=== PATIENT | female | born 1930 | race Caucasian/White ===

== ENCOUNTER → 2017-02-06 | Outpatient (CLI) | payer OTHER, MEDICARE ==
[2017-02-06 11:52] LABS: BASOPHILS # (AUTO) 0.03 10*3/UL; BASOPHILS % (AUTO) 0.5 % (0-1); EOSINOPHILS % (AUTO) 3.9 % (0-8); HEMOGLOBIN 11.8 g/dL (12.0-16.0); IMM GRAN % (AUTO) 0.2 % (0-5); IMM GRAN# (AUTO) 0.01 10*3/UL; LYMPHOCYTES # (AUTO) 1.14 10*3/uL; LYMPHOCYTES % (AUTO) 18.5 % (10-50); MEAN CORPUSCULAR HEMOGLOBIN 32.7 PG (27-31); MEAN CORPUSCULAR HGB CONC 32.8 g/dL (33-37); MEAN PLATELET VOLUME 8.6 FL (7.4-12.2); MONOCYTES % (AUTO) 9.7 % (5-15); NEUTROPHILS # (AUTO) 4.14 10*3/UL; NEUTROPHILS % (AUTO) 67.2 % (50-80); RDW COEFFICIENT OF VARIATION 12.5 % (11.5-14.5); RED BLOOD COUNT 3.61 10^6/uL (4.20-5.40); WHITE BLOOD COUNT 6.16 10^3/uL (4.8-10.8)
[2017-02-06 12:05] LABS: PLATELET MORPHOLOGY COMMENT NORMAL MORPHOLOGY (NORM)
[2017-02-06 12:15] LABS: HEMOGLOBIN A1C 6.18 % (4.2-6.0); MEAN BLOOD GLUCOSE (CALC) 119.794 mg/dL
[2017-02-06 12:20] LABS: ASPARTATE AMINO TRANSFERASE 27 IU/L (8-39); BILIRUBIN,TOTAL 0.7 mg/dL (0.3-1.2); BLOOD UREA NITROGEN 62 mg/dL (7-22); BUN/CREATININE RATIO 25.83 (6-20); CALCIUM 11.2 mg/dL (8.7-10.7); CHLORIDE 96 meq/L (98-112); CREATININE 2.4 mg/dL (0.50-1.20); GLUCOSE 116 mg/dL (78-110); HDL CHOLESTEROL 85 mg/dL (40-150); PHOSPHORUS 4.1 mg/dl (2.4-4.3); POTASSIUM 4.4 meq/L (3.8-5.2); SODIUM 133 meq/L (135-145); TOTAL PROTEIN 7.1 g/dL (6.1-8.0); TRIGLYCERIDES 95 mg/dL (44-200)
[2017-02-06 13:52] LABS: FREE T4 (FREE THYROXINE) 1.51 ng/dL (0.93-1.71)
== END ==
LOC: MOB LAB 10:51
DX: E11.9 Type 2 diabetes mellitus without complications (principal); I12.9 Hypertensive chronic kidney disease with stage 1 through stage 4 chronic kidney disease, or unspecified chronic kidney disease; N18.9 Chronic kidney disease, unspecified; E03.9 Hypothyroidism, unspecified; E55.9 Vitamin D deficiency, unspecified
CPT/HCPCS: 36415; 80053; 80061; 82306; 83036; 84100; 84439; 84443; 85025

== ENCOUNTER → 2017-04-04 | Outpatient (CLI) | payer OTHER, MEDICARE ==
[2017-04-04 11:45] LABS: BASOPHILS # (AUTO) 0.02 10*3/UL; BASOPHILS % (AUTO) 0.4 % (0-1); EOSINOPHILS # (AUTO) 0.22 10*3/UL; EOSINOPHILS % (AUTO) 4.1 % (0-8); HEMATOCRIT 38.1 % (37.0-47.0); HEMOGLOBIN 12.3 g/dL (12.0-16.0); LYMPHOCYTES # (AUTO) 0.96 10*3/uL; MEAN CORPUSCULAR HEMOGLOBIN 32.2 PG (27-31); MEAN CORPUSCULAR HGB CONC 32.3 g/dL (33-37); MEAN CORPUSCULAR VOLUME 99.7 FL (81-99); MEAN PLATELET VOLUME 8.6 FL (7.4-12.2); MONOCYTES # (AUTO) 0.59 10*3/UL (0.3-0.8); MONOCYTES % (AUTO) 10.9 % (5-15); NEUTROPHILS % (AUTO) 66.8 % (50-80); RED BLOOD COUNT 3.82 10^6/uL (4.20-5.40)
[2017-04-04 11:47] LABS: PLATELET MORPHOLOGY COMMENT NORMAL MORPHOLOGY (NORM); RBC MORPHOLOGY COMMENT NORMAL MORPHOLOGY (NORM); WBC MORPHOLOGY COMMENT NORMAL MORPHOLOGY (NORM)
[2017-04-04 12:06] LABS: BLOOD UREA NITROGEN 49 mg/dL (7-22); BUN/CREATININE RATIO 20.41 (6-20); CALCIUM 9.9 mg/dL (8.7-10.7); PHOSPHORUS 5.3 mg/dl (2.4-4.3)
== END ==
LOC: MOB LAB 10:57
DX: I12.9 Hypertensive chronic kidney disease with stage 1 through stage 4 chronic kidney disease, or unspecified chronic kidney disease (principal); N18.3 Chronic kidney disease, stage 3 (moderate); D63.1 Anemia in chronic kidney disease; E11.9 Type 2 diabetes mellitus without complications
CPT/HCPCS: 36415; 80048; 84100; 85025

== ENCOUNTER 2017-04-10 05:54 | Day surgery (SDC) | payer OTHER, MEDICARE ==
[2017-04-10] MEDS ORDERED: PROPOFOL 10 MG/1 ML (200 MG/20 ML) VIAL IV ONE (06:00)
[2017-04-10 09:15] VITALS: RESP 12; TEMP 97.4
[2017-04-10] MEDS ORDERED: Lactated Ringers 1,000 ML PRIMARY IV ONE (10:34)
[2017-04-10] MEDS ORDERED: LIDOCAINE W/ SODIUM BICARB 0.5 ML SYR ONE (10:34)
== END 2017-04-10 08:41 | disposition home or self-care (01) ==
LOC: SDSC 05:54
PROVIDERS: ATTEND Ophthalmology
DX: H25.12 Age-related nuclear cataract, left eye (principal)
CPT/HCPCS: 66984; J2704; J7120

== ENCOUNTER → 2017-07-03 | Outpatient (CLI) | payer OTHER, MEDICARE ==
[2017-07-03 11:57] LABS: HEMOGLOBIN A1C 7.07 % (4.2-6.0)
[2017-07-03 12:16] LABS: BLOOD UREA NITROGEN 47 mg/dL (7-22); CALCIUM 9.2 mg/dL (8.7-10.7)
== END ==
LOC: MOB LAB 10:36
DX: E11.9 Type 2 diabetes mellitus without complications (principal); E03.9 Hypothyroidism, unspecified; I12.9 Hypertensive chronic kidney disease with stage 1 through stage 4 chronic kidney disease, or unspecified chronic kidney disease; N18.3 Chronic kidney disease, stage 3 (moderate); K21.9 Gastro-esophageal reflux disease without esophagitis; G40.909 Epilepsy, unspecified, not intractable, without status epilepticus
CPT/HCPCS: 36415; 80048; 83036; 84443

== ENCOUNTER 2018-11-05 14:00 | Observation (INO) ==
[2018-11-05] MEDS ORDERED: Sodium Chloride 0.9% 1,000 ML PRIMARY IV ONE (14:32)
[2018-11-05 14:47] LABS: BASOPHILS # (AUTO) 0.01 10*3/UL; BASOPHILS % (AUTO) 0.1 % (0-1); EOSINOPHILS # (AUTO) 0.19 10*3/UL; EOSINOPHILS % (AUTO) 2.6 % (0-8); Hemoglobin [HGB] 12.7 g/dL (12.0-16.0); MEAN CORPUSCULAR HEMOGLOBIN 32.4 PG (27-31); MEAN CORPUSCULAR HGB CONC 33.4 g/dL (33-37); MEAN CORPUSCULAR VOLUME 96.9 FL (81-99); MEAN PLATELET VOLUME 9.3 FL (7.4-12.2); MONOCYTES # (AUTO) 0.54 10*3/UL (0.3-0.8); MONOCYTES % (AUTO) 7.4 % (5-15); NEUTROPHILS # (AUTO) 5.23 10*3/UL; NEUTROPHILS % (AUTO) 71.9 % (50-80); RED BLOOD COUNT 3.92 10^6/uL (4.20-5.40)
--- NOTE | 2018-11-05 14:49 | EKG ---
[address] [address] Measurements Intervals [place] Rate: 59 P: 79 [place]: 144 QRS: 23 QRSD: 145 T: 48 QT: 494 QTc: 494 Interpretive Statements SINUS BRADYCARDIA POSSIBLE LEFT ATRIAL ENLARGEMENT LEFT BUNDLE BRANCH BLOCK No previous ECG available for comparison Electronically Signed On 11-05-18 16:08:10 [facility] by Vickey Simms [email or web address]
[2018-11-05 14:57] LABS: BLOOD UREA NITROGEN 46 mg/dL (7-22); BUN/CREATININE RATIO 19.16 (6-20); SERUM ALBUMIN 4.5 g/dL (3.5-4.8)
[2018-11-05 15:06] LABS: PLATELET MORPHOLOGY COMMENT NORMAL MORPHOLOGY (NORM); RBC MORPHOLOGY COMMENT NORMAL MORPHOLOGY (NORM); WBC MORPHOLOGY COMMENT NORMAL MORPHOLOGY (NORM)
[2018-11-05 15:57] LABS: BILIRUBIN,URINE NEGATIVE (NEG); CLARITY,URINE CLEAR (CLEAR); COLOR,URINE YELLOW (Y); GLUCOSE, URINE (UA) NEGATIVE (NEG); PROTEIN,URINE >300 mg/dl (NEG); UROBILINOGEN,URINE 0.2 EU/dL (0.2)
[2018-11-05 15:58] LABS: OCCULT BLOOD,URINE TRACE (NEG)
[2018-11-05 16:15] LABS: BACTERIA,URINE RARE; SQUAMOUS EPITHELIAL CELL,UR RARE; URINE SAMPLE TYPE CATH SPECIMEN; WBC,URINE 0-2
--- NOTE | 2018-11-05 17:15 | PDOC ---
HPI - History of Present Illness Date of Service: 11/05/18 Time of Service: 18:00 Chief Complaint: Dizziness and vomiting History of Present Illness: This is an 88 years old female with medical history significant for history of hypertension, hypothyroidism and chronic renal insufficiency who was brought to the hospital for evaluation because of dizziness and the vomiting. She said she was sitting felt dizzy no spinning sensation more like lightheadedness and problem with her balance she vomited multiple times she called the medics and ion chung brought her to the hospital for evaluation. She had multiple tests that did show her kidney function to be the same. The CT of the head was negative for acute infarct or hemorrhage. She continued to feel weak and having problem with her balance and she lives alone so she was admitted. By the time I came in to see her she said she was feeling better the dizziness seemed to be improved, no nausea. She denied chest pain, palpitation, no shortness of breath. Past Medical History Medical History: 1. Diabetes on oral hyperglycemic agent. 2. Hypertension. 3. Hypothyroidism. 4. Chronic renal insufficiency stage III. 5. Macular degeneration. 6. History of carotid artery stenosis. 7. 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 Appendectomy. 2. Carpal family is. 3. secti on. 4. Cholecystectomy. 5. History of thyroid surgery Past Social History: Does not smoke, does not drink. No drugs. Lives here in [place] by herself. Has 2 sons 1 lives in [place] and the other lives in [place]. She recently lost her . Tobacco Use: Never Smoker In the Past 12 Months, Have Used or Abuse Any of the Following Substance: None Alcohol Use: None Medication / Allergies Home Medications: Home Medications Medication Instructions Recorded Confirmed Type Lancets [Freestyle Lancets] 1 ea MC PRN 07/07/11 11/05/18 History Vit C/Vit E AC/Lut/Copper/Zinc 1 cap PO BID #60 cap 12/03/15 11/05/18 History [Preservision Lutein Softgel] polyethylene glycol 3350 17 gram 17 g PO QDAY #527 ea 09/19/17 11/05/18 Rx oral powder packet irbesartan 150 mg tablet 150 mg PO QDAY #90 tab 03/06/18 11/05/18 Rx levothyroxine 125 mcg tablet 125 mcg PO QDAY tab 07/04/18 11/05/18 History aspirin 81 mg tablet,delayed 81 mg PO QDAY #90 tab 08/20/18 11/05/18 Rx release calcium carbonate 200 mg calcium 200 mg PO QDAY tab 10/17/18 11/05/18 History (500 mg) chewable tablet cholecalciferol (vitamin D3) 2,000 2,000 unit PO QDAY cap 10/17/18 11/05/18 History unit capsule multivitamin tablet 1 tab PO QDAY #30 tab 10/17/18 11/05/18 History sitaGLIPtin Tab [Januvia Tab] 100 mg PO DAILY 11/05/18 11/05/18 History Allergies/Adverse Reactions: Allergies Allergy/AdvReac Type Severity Reaction Status Date / Time clopidogrel bisulfate Allergy Intermediate RASH Verified 11/06/18 06:11 [From Plavix] lansoprazole [From Prevacid] Allergy Intermediate RASH Verified 11/06/18 06:11 omeprazole [From Prilosec] Allergy Intermediate RASH Verified 11/06/18 06:11 omeprazole magnesium Allergy Intermediate RASH Verified 11/06/18 06:11 [From Prilosec] pantoprazole sodium Allergy Intermediate RASH Verified 11/06/18 06:11 [From Protonix] propranolol HCl Allergy Intermediate RASH Verified 11/06/18 06:11 [From Inderal] atenolol [From Tenormin] Allergy Unknown NOT Verified 11/06/18 06:11 APPLICABLE clarithromycin [From Biaxin] AdvReac Intermediate NOT Verified 11/06/18 06:11 APPLICABLE pregabalin [From Lyrica] AdvReac Intermediate NOT Verified 11/06/18 06:11 APPLICABLE codeine [Codeine] AdvReac Mild NOT Verified 11/06/18 06:11 APPLICABLE quinapril HCl [From Accupril] AdvReac Mild NOT Verified 11/06/18 06:11 APPLICABLE alendronate sodium AdvReac NOT Verified 11/06/18 06:11 [From Fosamax] APPLICABLE DIURETIC AdvReac Intermediate NOT Uncoded 11/06/18 06:11 APPLICABLE Review of Systems - Review of Systems All Systems: Reviewed & No Additional Complaints Except as Stated Exam - Vitals Vital Signs: Vital Signs Temperature 97.7 F Temperature Source Temporal Artery Scan Pulse Rate [Pulse Oximeter 64 Right] Pulse Rate [Standing] 72 Pulse Rate [Sitting] 66 Pulse Rate [Lying] 64 Respiratory Rate 20 Blood Pressure [Standing] 164/85 Blood Pressure [Sitting] 182/83 Blood Pressure [Lying] 194/80 Blood Pressure [Right Arm] 180/102 Pulse Ox 94 Oxygen Delivery Method Room Air Height 5 ft 3 in Weight 105 lb - General General Appearance: No Acute Distress, Cooperative - Head Head Exam: Normal Inspection - Eye Eye Exam: POSITIVE: Normal Appearance - ENT ENT Exam: POSITIVE: Normal Exam - Neck Neck Exam: Normal Inspection - Respiratory Respiratory Exam: POSITIVE: Clear to Auscultation - Bilaterally - Cardiovascular Cardiovascular Exam: POSITIVE: RRR, Systolic Murmur - GI/Abdominal GI/Abdominal Exam: POSITIVE: Normal Bowel Sounds, Non Tender, Non Distended, Soft, No Organomegaly - Rectal Rectal Exam: POSITIVE: Deferred - External Exam: POSITIVE: Deferred - Extremities Extremities Exam: POSITIVE: Normal Inspection - Back Back Exam: POSITIVE: Normal Inspection - Neurological Neurological Exam: POSITIVE: Alert, Oriented x 3, CN II-XII Intact, No Facial Droop, Speech Intact / Clear, Moves All Extremities Equally Additional Neurological Exam Details: No nystagmus present. No coordination issues noted - Psychiatric Psychiatric Exam: POSITIVE: Normal Affect - Integumentary Integumentary Exam: POSITIVE: Normal Color Results - Labs CBC and BMP: 11/05/18 13:43 11/06/18 04:20 - EKG Data -: EKG Interpreted by Me (Left bundle branch work which is old) - Imaging Status: Report Reviewed by Me (CT head 1. There is no acute hemorrhagic or bland infarct or evidence of the cerebellar pontine angle mass. 2. The third and lateral ventricles are dilated. Punctate calcifications are present along the lateral margins of the lateral ventricles possibly related to previous infla mmatory disease. 3. Calcifications are present along the lateral margin of the left cerebellar hemisphere in proximity to the dura. These may be secondary to a meningioma or possibly due to previous infection. There is a single calcification in the left frontal lobe that also may be secondary to previous infection. 4. Moderately advanced small vessel ischemic disease given for this patient's age. Mild cerebellar and moderate cerebral atrophy.) Assessment and Plan - Patient Problems (1) Dizziness Current Visit: Yes Status: Acute Comment: Etiology unclear will watch her tonight. Will repeat her enzymes. Put her on a monitor. We'll see what the CT shows and then will decide if we need do an MRI tomorrow. Code(s): R42 - Dizziness and giddiness (2) Hypothyroidism Current Visit: No Status: Chronic Onset Date: 06/06/12 Comment: Same med Code(s): E03.9 - Hypothyroidism, unspecified (3) Benign essential hypertension Current Visit: No Status: Chronic Onset Date: 06/06/12 Comment: Blood pressure is somewhat elevated when she came will watch it. Will put on her usual medications for now. Code(s): I10 - Essential (primary) hypertension (4) Diabetes Current Visit: Yes Status: Acute Comment: Continue Januvia. Code(s): E11.9 - Type 2 diabetes mellitus without complications
[2018-11-05] MEDS ORDERED: CALCIUM CARBONATE 500 MG (TUMS) CHEWABLE TABLET PO PRN (17:47)
[2018-11-05] MEDS ORDERED: DOCUSATE 100 MG CAPSULE PO PRN (17:47)
[2018-11-05] MEDS ORDERED: LIDOCAINE W/ SODIUM BICARB 0.5 ML SYR SUBD PRN (17:47)
[2018-11-05] MEDS ORDERED: ONDANSETRON 4 MG/2 ML VIAL IVP PRN (17:47)
[2018-11-05] MEDS ORDERED: ACETAMINOPHEN 325 MG TABLET PO PRN (17:47)
[2018-11-05] MEDS ORDERED: POLYETHYLENE GLYCOL 3350 17 GM POWDER PO PRN (17:49)
--- NOTE | 2018-11-05 18:42 | DI ---
CT HEAD SCAN WITHOUT IV CONTRAST, 11/05/2018 2:32 PM : Clinical History: Vertigo. Previous Exam: None at this facility. Technique: Performed from the foramen magnum to vertex without IV contrast. Contrast Volume: None. 4th ventricle: Normal. 3rd and Lateral Ventricles: Markedly dilated but appropriate for the patient's age. There are punctat e calcifications along the lateral margins of both lateral ventricles. Cerebrum: Moderate atrophy. There are multiple punctate periventricular white matter lucencies bilate rally that extend into the watershed territory, consistent with small vessel ischemic disease. This a mount of ischemic disease is moderately advanced even for the patient's age. There is a focus of calc ification at the left frontoparietal junction measuring approximately 3 x 4 x 5 mm. Cerebellum: Mild atrophy. No cerebellopontine angle mass. Calcifications are present along the left l ateral margin of the left cerebellar hemisphere. All but one are in proximity to the dura. Brainstem: Normal. Extracerebral Mantles/Midline Shift: No extracerebral mantle or dural lesion. No midline shift. Sinuses: Normal. Skull: Intact. READIN. There is no acute hemorrhagic or bland infarct or evidence of the cerebellar pontine angle mass. 2. The third and lateral ventricles are dilated. Punctate calcifications are present along the later al margins of the lateral ventricles possibly related to previous inflammatory disease. 3. Calcifications are present along the lateral margin of the left cerebellar hemisphere in proximit y to the dura. These may be secondary to a meningioma or possibly due to previous infection. There is a single calcification in the left frontal lobe that also may be secondary to previous infection. 4. Moderately advanced small vessel ischemic disease given for this patient's age. Mild cerebellar a nd moderate cerebral atrophy.
--- NOTE | 2018-11-05 20:52 | PDOC ---
General Adult HPI - General Chief Complaint: General Medical Stated Complaint: dizzy, nauseated Date Seen by Provider: 11/05/18 Time Seen by Provider: 14:10 Source: POSITIVE: Patient, EMS Exam Limitations: POSITIVE: No limitations Nurse's Notes Reviewed & Considered: Yes EMS Report Reviewed & Considered: Verbal - History of Present Illness Initial Comment: The patient is an 88-year-old female who is brought to the emergency room by ambulance. Patient states around 10:00 this morning, approximately 4 hours [employer] she developed "weakness and dizziness". Patient has a history of diabetes mellitus and she thought that her blood sugar might be low so she took 3 glucose tablets and some orange juice. Shortly thereafter she vomited. She states she's had 3 or 4 episodes of vomiting. She called the ambulance and the ambulance brought her here. Patient states that she sometimes has the sensation of" spinning". Patient states that she feels "very weak ". She normally uses a walker and her gait has become unsteady. She states she has a history of "a prolapsed heart valve". Patient states that upon presentation to the emergency room she is beginning to feel better. She denies any associated head, chest or abdominal pain. No localized sensory or motor deficits. No hematemesis. No diarrhea. Patient is a frail elderly female who lives alone. She states she has some grandchildren in [place]. She normally uses a walker to get around. Have you received a tetanus shot in the past 10 years?: No Body Location Affected: REPORTS: Other (As above) Timing: REPORTS: Abrupt, Constant, Improved Duration: 4-6 hours Severity: Moderate Quality: REPORTS: Other (Patient denies any pain anywhere) Context: REPORTS: Sitting (Worse when trying to sit or stand), Standing (Worse when trying to sit or stand), Near Fall Modifying Factors: improves with: Vomiting (As above), Movement Similar Symptoms Previously: No Recent Care Received: REPORTS: Denies Any Prior Injuries Related to Current Complaint?: No - Patient Home Medications Home Medications: Home Medications Lancets [Freestyle Lancets] 1 ea PRN 07/07/11 Vit C/Vit E AC/Lut/Copper/Zinc [Preservision Lutein Softgel] 1 cap PO BID #60 cap 12/03/15 polyethylene glycol 3350 17 gram oral powder packet 17 g PO QDAY #527 ea 09/19/17 irbesartan 150 mg tablet 150 mg PO QDAY #90 tab 03/06/18 levothyroxine 125 mcg tablet 125 mcg PO QDAY tab 07/04/18 aspirin 81 mg tablet,delayed release 81 mg PO QDAY #90 tab 08/20/18 calcium carbonate 200 mg calcium (500 mg) chewable tablet 200 mg PO QDAY tab 10/17/18 cholecalciferol (vitamin D3) 2,000 unit capsule 2,000 unit PO QDAY cap 10/17/18 multivitamin tablet 1 tab PO QDAY #30 tab 10/17/18 sitaGLIPtin Tab [Januvia Tab] 100 mg PO DAILY 11/05/18 - Patient Allergies Allergies/Adverse Reactions: Allergies Allergy/AdvReac Type Severity Reaction Status Date / Time clopidogrel bisulfate Allergy Intermediate RASH Verified 11/05/18 14:49 [From Plavix] lansoprazole [From Prevacid] Allergy Intermediate RASH Verified 11/05/18 14:49 omeprazole [From Prilosec] Allergy Intermediate RASH Verified 11/05/18 14:49 omeprazole magnesium Allergy Intermediate RASH Verified 11/05/18 14:49 [From Prilosec] pantoprazole sodium Allergy Intermediate RASH Verified 11/05/18 14:49 [From Protonix] propranolol HCl Allergy Intermediate RASH Verified 11/05/18 14:49 [From Inderal] atenolol [From Tenormin] Allergy Unknown NOT Verified 11/05/18 14:49 APPLICABLE clarithromycin [From Biaxin] AdvReac Intermediate NOT Verified 11/05/18 14:49 APPLICABLE pregabalin [From Lyrica] AdvReac Intermediate NOT Verified 11/05/18 14:49 APPLICABLE codeine [Codeine] AdvReac Mild NOT Verified 11/05/18 14:49 APPLICABLE quinapril HCl [From Accupril] AdvReac Mild NOT Verified 11/05/18 14:49 APPLICABLE alendronate sodium AdvReac NOT Verified 11/05/18 14:49 [From Fosamax] APPLICABLE DIURETIC AdvReac Intermediate NOT Uncoded 11/05/18 14:49 APPLICABLE Past Medical History - heen HEENT History: Macular Degeneration, Cataracts Cardiovascular History: Hypertension, CAD, DVTs Respiratory History: Denies History Gastrointestinal History: GERD Genitourinary History: Renal Disease, Incontinence Endocrine History: Type 2 Diabetes (oral) Musculoskeletal History: Arthritis, Joint Pain Neurological History: TIA, Seizures Additional Neurological History: WAS ON SEIZURE MEDS FOR 2 YRS THEN THEY STOPPED AND HAVENT TAKEN MEDS SINCE. Blood Disorders: Denies History Psychiatric History: Denies History History of Sexually Transmitted Diseases: No Female Reproductive History: Hysterectomy Obstetrical History: Delivery Cancer History: Denies History In Past Year Been Physically Harmed or Verbally Threatened: No History of MDRO: No History of Other Communicable Diseases: No Tobacco Use: Never Smoker Alcohol Use: None In the Past 12 Months, Have Used or Abuse Any Substance: None Previous Surgical History: Yes Type / Date of Surgery: RIGHT CTR/ PARTIAL THYROIDECTOMY/ BILAT BREAST BX/ AIME/ APPY/ HYST/ BLADDER SUSPENSION/ RIGHT CATARACT FEBRUARY 05, 2017 Anesthesia Reactions: No Malignant Hyperthermia: No Significant Family History: Diabetes, Heart disease, Hypertension, Renal disease, Vascular disease Past Medical History Reviewed: Reviewed - No Changes ROS - Limitations ROS Limitations: No Limitations Constitution: REPORTS: Weakness Cardiovascular: REPORTS: Denies Cardiac Symptoms Respiratory: REPORTS: Denies Resp Symptoms Neurological: REPORTS: Denies Neuro Symptoms Gastrointestinal: REPORTS: Vomitting (3 or 4 today) Endocrine: REPORTS: Fatigue Musculoskeletal: REPORTS: Denies MS Symptoms Genitourinary: REPORTS: Denies Symptoms Eyes: REPORTS: Denies Symptoms ENT: REPORTS: Denies Symptoms Skin: REPORTS: Denies Skin Symptoms Lympathic: REPORTS: Denies Lympathic Symptoms Immunologic: POSITIVE: Denies Symptoms Psychiatric: POSITIVE: Denies Psych Symptoms General Adult Exam - General Appearance General Appearance: POSITIVE: Alert, Cooperative, No Acute Distress, No Evidence of Trauma - HEENT HEENT: POSITIVE: Head Inspection Nml, Eyes Inspection Nml, Ears Inspection Nml, Nose Inspection Nml, Oral/Dental Inspect. Nml, Pharynx Inspect. Nml, PERRL, EOMI, Other (No abnormal nystagmus. Negative [place]-Hallpike test) - Pupils Pupil Size: 4 mm: Bilateral (PERRLA) - Neck Neck: POSITIVE: Normal Inspection, Thyroid Normal - Respiratory Respiratory: POSITIVE: No Respiratory Distress, Breath Sounds Normal, Chest Non- Tender - Cardiovascular Cardiovascular: POSITIVE: Regular Rate & Rhythm, No Murmur, No Gallop, PMI Normal Peripheral Pulses: Radial (R): 2+, Radial (L): 2+ - Abdomen Abdomen: Soft: (All Quadrants), Normal Bowel Sounds: (All Quadrants), Denies T enderness: (All Quadrants), No Splenomegaly: (All Quadrants), No Hepatomegaly: (All Quadrants), No Guarding: (All Quadrants), No Rebound: (All Quadrants), No Palpable Pulse: (All Quadrants), No Palpabale Mass: (All Quadrants), No Distention: (All Quadrants), No Rigidity: (All Quadrants) - Back Back: POSITIVE: Normal Inspection - Skin Skin: POSITIVE: Normal Color, Warm, Dry, No Rash - Extremities Extremity: Non-Tender: (All Extremities), Normal ROM: (All Extremities), Normal Inspection: (All Extremities) - Neurological / Psychological Neurological: POSITIVE: Affect Apporpriate, 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 Lab Results Reviewed by Me: Yes Lab Results:: Laboratory Results 11/05/18 11/05/18 11/05/18 13:43 13:43 13:43 WBC 7.28 RBC 3.92 L Hgb 12.7 Hct 38.0 MCV 96.9 MCH 32.4 H MCHC 33.4 RDW Std Deviation 41.9 RDW Coeff of Alberto 12.2 Plt Count 208 MPV 9.3 Immature Gran % (Auto) 0.1 Neut % (Auto) 71.9 Lymph % (Auto) 17.9 [place] % (Auto) 7.4 Eos % (Auto) 2.6 Baso % (Auto) 0.1 Immature Gran # (Auto) 0.01 Neut # (Auto) 5.23 Lymph # (Auto) 1.30 [place] # (Auto) 0.54 Eos # (Auto) 0.19 Baso # (Auto) 0.01 WBC Morphology Comment Normal morphology Plt Morphology Comment Normal morphology RBC Morph Comment Normal morphology Sodium 133 L Potassium 4.2 Chloride 98 Carbon Dioxide 23 Anion Gap 12 BUN 46 H Creatinine 2.4 H Estimated GFR Artist And Repertoire Manager BUN/Creatinine Ratio 19.16 Glucose 143 H Calculated Osmolality 289.0 Calcium 9.5 Magnesium 2.0 Total Bilirubin 0.9 AST 26 ALT 32 Alkaline Phosphatase 84 Total Creatine Kinase 169 H CK-MB (CK-2) 3.54 Troponin I < 0.012 Total Protein 7.2 Albumin 4.5 Globulin 2.8 Albumin/Globulin Ratio 1.60 Ur Collection Type Urine Color Urine Clarity Urine pH Ur Specific [place] Urine Protein Urine Glucose (UA) Urine Ketones Urine Occult Blood Urine Nitrate Urine Bilirubin Urine Urobilinogen Ur Leukocyte Esterase Urine RBC Urine WBC Ur Squamous Epith Cells Ur Renal Epithelial Cell Urine Crystals Urine Bacteria Urine Casts Urine Mucus Urine Trichomonas Urine Yeast Ur Culture Indicated? 11/05/18 15:35 WBC RBC Hgb Hct MCV MCH MCHC RDW Std Deviation RDW Coeff of Alberto Plt Count MPV Immature Gran % (Auto) Neut % (Auto) Lymph % (Auto) [place] % (Auto) Eos % (Auto) Baso % (Auto) Immature Gran # (Auto) Neut # (Auto) Lymph # (Auto) [place] # (Auto) Eos # (Auto) Baso # (Auto) WBC Morphology Comment Plt Morphology Comment RBC Morph Comment Sodium Potassium Chloride Carbon Dioxide Anion Gap BUN Creatinine Estimated GFR BUN/Creatinine Ratio Glucose Calculated Osmolality Calcium Magnesium Total Bilirubin AST ALT Alkaline Phosphatase Total Creatine Kinase CK-MB (CK-2) Troponin I Total Protein Albumin Globulin Albumin/Globulin Ratio Ur Collection Type Cath specimen Urine Color Yellow Urine Clarity Clear Urine pH 7.0 Ur Specific [place] 1.015 Urine Protein >300 A Urine Glucose (UA) Negative Urine Ketones Negative Urine Occult Blood Trace H Urine Nitrate Negative Urine Bilirubin Negative Urine Urobilinogen 0.2 Ur Leukocyte Esterase Negative Urine RBC 2-4 Urine WBC 0-2 Ur Squamous Epith Cells Rare Ur Renal Epithelial Cell None Urine Crystals None Urine Bacteria Rare Urine Casts None Urine Mucus Moderate Urine Trichomonas None Urine Yeast None Ur Culture Indicated? Culture not set CBC and BMP: 11/05/18 13:43 11/05/18 13:43 EKG Interpreted/Reviewed By Me:: Yes (left bundle-branch block; sinus rhythm at 59/m) EKG Interpretation:: POSITIVE: Normal Sinus Rhythm, Abnormal EKG. NEGATIVE: Normal Rate (59/m, sinus), Normal Intervals (Left bundle-branch block), Normal [place] (Left bundle-branch block), Normal QRS (Left bundle-branch block), Normal ST/T (Left bundle-branch block) - Patient's Progress Pain Medication Addressed: POSITIVE: Not Applicable School/Work Release Addressed: POSITIVE: Not Applicable Re-Examine Time: 16:35 Re-Examine Comment: Options for further evaluation and treatment discussed with patient. Patient advised that at this time I'm not completely sure what the source of her symptoms are. Patient lives alone and is very frail and has an inadequate social support network. We decided to admit the patient for further observation and evaluation and treatment as necessary. Status: POSITIVE: Unchanged, Re-Examined Antibiotics Given: No - Consult Consult (If Yes, Name of Consulting MD & Time Called): Yes (Dr. Liu, hospitalist, [id number]) Consulting MD will see pt:: POSITIVE: [facility] Admit Counseled: POSITIVE: Patient, RE: Lab Results, RE: Radiology Results, RE: DX, RE: Need for F/U Patient Care Time - Estimated PCT Patient Care Time (In Minutes): 60 Vital Signs - Recent Vital Signs Vital Signs: Vital Signs (Last 8 hours) Temp Pulse Pulse Pulse Pulse Pulse Pulse 11/05/18 20:01 98.0 F 71 11/05/18 18:30 60 11/05/18 18:08 97.8 F 66 11/05/18 17:00 97.7 F 72 11/05/18 16:25 64 66 72 11/05/18 14:00 97.7 F 64 Resp BP BP BP BP BP Pulse Ox 11/05/18 20:01 18 146/65 92 11/05/18 18:30 14 11/05/18 18:08 18 182/69 95 11/05/18 17:00 20 164/85 94 11/05/18 16:25 194/80 182/83 164/85 11/05/18 14:00 20 180/102 94 - VS Reviewed Vital Signs Reviewed: Yes Discharge Clinical Impression: Dizziness, Weakness, Inadequate social support Discharge Disposition: Admit to Inpatient Condition: Stable Date Decision to Admit to Inpatient: 11/05/18 Time Decision to Admit to Inpatient: 16:35
[2018-11-06 05:08] LABS: BLOOD UREA NITROGEN 44 mg/dL (7-22); BUN/CREATININE RATIO 18.33 (6-20); SERUM ALBUMIN 3.4 g/dL (3.5-4.8)
[2018-11-06] MEDS ORDERED: LEVOTHYROXINE 125 MCG TABLET PO SCH (07:00)
[2018-11-06] MEDS ORDERED: sitaGLIPtin Tab 100 MG TAB PO SCH (09:00)
[2018-11-06] MEDS ORDERED: ASPIRIN EC 81 MG TABLET PO SCH (09:00)
[2018-11-06] MEDS ORDERED: Multivitamin Tab 1 TAB PO SCH (09:00)
--- NOTE | 2018-11-06 10:59 | DI ---
MRI BRAIN SCAN WITHOUT IV CONTRAST, 11/06/2018 9:00 AM: Clinical History: Vomiting. Dizziness. Previous Exam: 05/21/2010. Comparison is also made with the most recent CT head scan from 11/05/2018, as well as a previous study from 10/05/2008. Sequences: Sagittal T1; Axial ZI T2 and FLAIR. Axial diffusion weighted images with ADC mapping. 4th Ventricle: The fourth ventricle is of normal size, shape, position and contour. 3rd Ventricle: Markedly dilated. Lateral Ventricles: Markedly dilated. In retrospect, the very small punctate calcifications are visib le along the lateral huntley of the lateral ventricles. These have not changed since the CT scans from 2007. Brain Parenchyma: There is no acute hemorrhagic or bland infarct. There are multiple punctate periven tricular white matter hyperintensities bilaterally that extend into the watershed territory, consiste nt with small vessel ischemic disease. This amount of ischemic disease is markedly increased for the patient's age, and these changes have progressed since the last MRI brain study. Ischemic changes are also present in the left cerebral peduncle and the mid brain and these have not changed. The focus o f calcification in the left frontoparietal junction is noted and in retrospect, has not changed since the prior MRI and CT head scans. Mass: No cerebellar pontine angle mass or other intracranial mass is identified. Atrophy: Moderate cerebral and mild cerebellar atrophy. Diffusion Weighted Imaging: Normal diffusion weighted imaging with ADC mapping. Extracerebral Mantels/Midline Shift: No extracerebral mantels or midline shift. Sinuses: Normal paranasal sinuses. Readin. No acute hemorrhagic or bland infarct is identified. There is no cerebellar pontine angle mass. 2. Markedly severe small vessel ischemic change and this has progressed since the previous MRI brain scan from 2009. Ischemic changes are also noted in the left cerebral peduncle and midbrain, and thes e are unchanged. 3. Punctate calcifications in the lateral huntley of the lateral ventricles and the calcification in t he left frontoparietal region were present on the previous CT scan from 2007 and remained stable. The exact etiology of these calcifications in the lateral ventricles is uncertain. They may be secondary to previous infection.
--- NOTE | 2018-11-06 11:34 | PT.PROG ---
Progress Note Progress Note: Inpatient Initial Evaluation Name: Jaja Morales Date: 11/06/18 Referring Physician: Nora Liu Date of Surgery/Admission: 11/06/18 Diagnosis: Generalized Weakness Thank you for your referral of PT. He was seen on 11/06/18 for the above diagnosis. Subjective: The patient is a 88-year-old female admitted to inpatient care for generalized weakness. She states she doesn't have any pain at this time. She becomes dizzy upon standing, but otherwise isn't feeling dizzy at this time. She feels she is stronger today, and she is feeling much better. Patient lives alone in a one level house, and has three 3" steps to her front door with a hand rail. Past Medical History: Past medical history can be found in the patient's chart. Objective Findings: Patient ambulated 150 ft around the nurses station. She then completed LE and UE strengthening exercises in a seated position. Assessment: Problem List 1. Weakness 2. Difficulty walking 3. Dizziness Short-term Goals: 1. Patient will be able to ambulate 200 ft in order to walk safely and independently at home prior to discharge. 2. Patient will have improved strength prior to discharge. Long-term Goals: 1. Patient will be seen by outpatient physical therapy. Treatment Plan: Patient will be seen twice a day during the week and once over the weekend until discharge. Initial Treatment: See objective. Respectfully submitted, Abida Hatfield, SPT [facility] [employer], [facility]
--- NOTE | 2018-11-06 14:13 | DCSUMMARY ---
Hospitalization Summary Admit Date: 11/05/2018 Discharge Date: 11/06/18 Hospital Course: Discharge diagnoses 1. Episode of nausea and dizziness resolved 2. Hypertension 3. Hypothyroidism 4. Chronic kidney disease stage III 5. History of macular degeneration 6. History of carotid artery stenosis 7. History of previous DVT was on Coumadin at one point in time 8. Small vessel disease Hospital course This is an 88 years old female medical history significant for history of hypertension, hypothyroidism and chronic renal disease stage III who was brought to the hospital for evaluation because of dizziness and vomiting. She said she was sitting and then started to feel dizzy there was no spinning sensation though more like lightheadedness and problem with her balance. She did say she vomited multiple times called the medics who brought her to the hospital for evaluation. She had multiple tests that show her kidney function to be the same. The CT of the head was negative for acute infarct or hemorrhage. She continued to feel weak so she was admitted to the hospital. By the time I saw her she started to feel better. We kept her overnight. We repeated her cardiac enzymes were negative. We did an MRI of the brain which showed small vessel disease no acute infarct. There is calcification of the lateral ventricle may be from previous infection. She was assessed by physical therapy and they thought that she did well so we thought could be discharged home. She was better the next day and denied symptoms. She'll be discharged on same medication follow-up with her primary. The exact etiology of her symptoms is unclear. There was no evidence of nystagmus or incoordination when she came in. Laboratory Results 11/05/18 11/05/18 11/05/18 13:43 13:43 13:43 WBC 7.28 RBC 3.92 L Hgb 12.7 Hct 38.0 MCV 96.9 MCH 32.4 H MCHC 33.4 RDW Std Deviation 41.9 RDW Coeff of Alberto 12.2 Plt Count 208 MPV 9.3 Immature Gran % (Auto) 0.1 Neut % (Auto) 71.9 Lymph % (Auto) 17.9 [place] % (Auto) 7.4 Eos % (Auto) 2.6 Baso % (Auto) 0.1 Immature Gran # (Auto) 0.01 Neut # (Auto) 5.23 Lymph # (Auto) 1.30 [place] # (Auto) 0.54 Eos # (Auto) 0.19 Baso # (Auto) 0.01 WBC Morphology Comment Normal morphology Plt Morphology Comment Normal morphology RBC Morph Comment Normal morphology Sodium 133 L Potassium 4.2 Chloride 98 Carbon Dioxide 23 Anion Gap 12 BUN 46 H Creatinine 2.4 H Estimated GFR [facility] BUN/Creatinine Ratio 19.16 Glucose 143 H Calculated Osmolality 289.0 Calcium 9.5 Magnesium 2.0 Total Bilirubin 0.9 AST 26 ALT 32 Alkaline Phosphatase 84 Total Creatine Kinase 169 H CK-MB (CK-2) 3.54 Troponin I < 0.012 Total Protein 7.2 Albumin 4.5 Globulin 2.8 Albumin/Globulin Ratio 1.60 Ur Collection Type Urine Color Urine Clarity Urine pH Ur Specific [place] Urine Protein Urine Glucose (UA) Urine Ketones Urine Occult Blood Urine Nitrate Urine Bilirubin Urine Urobilinogen Ur Leukocyte Esterase Urine RBC Urine WBC Ur Squamous Epith Cells Ur Renal Epithelial Cell Urine Crystals Urine Bacteria Urine Casts Urine Mucus Urine Trichomonas Urine Yeast Ur Culture Indicated? 11/05/18 11/06/18 11/06/18 15:35 04:20 04:20 WBC RBC Hgb Hct MCV MCH MCHC RDW Std Deviation RDW Coeff of Alberto Plt Count MPV Immature Gran % (Auto) Neut % (Auto) Lymph % (Auto) [place] % (Auto) Eos % (Auto) Baso % (Auto) Immature Gran # (Auto) Neut # (Auto) Lymph # (Auto) [place] # (Auto) Eos # (Auto) Baso # (Auto) WBC Morphology Comment Plt Morphology Comment RBC Morph Comment Sodium 136 Potassium 4.2 Chloride 104 Carbon Dioxide 26 Anion Gap 6 BUN 44 H Creatinine 2.4 H Estimated GFR Risk Management Internship BUN/Creatinine Ratio 18.33 Glucose 105 Calculated Osmolality 292.0 Calcium 9.2 Magnesium Total Bilirubin 0.7 AST 20 ALT 33 Alkaline Phosphatase 63 Total Creatine Kinase CK-MB (CK-2) Troponin I 0.031 Total Protein 5.7 L Albumin 3.4 L Globulin 2.3 L Albumin/Globulin Ratio 1.40 Ur Collection Type Cath specimen Urine Color Yellow Urine Clarity Clear Urine pH 7.0 Ur Specific [place] 1.015 Urine Protein >300 A Urine Glucose (UA) Negative Urine Ketones Negative Urine Occult Blood Trace H Urine Nitrate Negative Urine Bilirubin Negative Urine Urobilinogen 0.2 Ur Leukocyte Esterase Negative Urine RBC 2-4 Urine WBC 0-2 Ur Squamous Epith Cells Rare Ur Renal Epithelial Cell None Urine Crystals None Urine Bacteria Rare Urine Casts None Urine Mucus Moderate Urine Trichomonas None Urine Yeast None Ur Culture Indicated? Culture not set Discharge instruction Diet regular Activity as tolerated Medications Current Medication(s) Medication Instructions Recorded Confirmed Type Lancets [Freestyle Lancets] 1 ea MC PRN 07/07/11 11/05/18 History Vit C/Vit E AC/Lut/Copper/Zinc 1 cap PO BID #60 cap 12/03/15 11/05/18 History [Preservision Lutein Softgel] polyethylene glycol 3350 17 gram 17 g PO QDAY #527 ea 09/19/17 11/05/18 Rx oral powder packet irbesartan 150 mg tablet 150 mg PO QDAY #90 tab 03/06/18 11/05/18 Rx levothyroxine 125 mcg tablet 125 mcg PO QDAY tab 07/04/18 11/05/18 History aspirin 81 mg tablet,delayed 81 mg PO QDAY #90 tab 08/20/18 11/05/18 Rx release calcium carbonate 200 mg calcium 200 mg PO QDAY tab 10/17/18 11/05/18 History (500 mg) chewable tablet cholecalciferol (vitamin D3) 2,000 2,000 unit PO QDAY cap 10/17/18 11/05/18 History unit capsule multivitamin tablet 1 tab PO QDAY #30 tab 10/17/18 11/05/18 History sitaGLIPtin Tab [Januvia Tab] 100 mg PO DAILY 11/05/18 11/05/18 History Follow-up with PCP in 1-2 weeks Condition at discharge was stable for discharge Exam - Vitals Vital Signs: Vital Signs Temperature 97.6 F Temperature Source Temporal Artery Scan Pulse Rate [Apical] 54 Pulse Rate [Pulse Oximeter 58 Right] Pulse Rate [Standing] 72 Pulse Rate [Sitting] 66 Pulse Rate [Lying] 64 Pulse Rate 53 Respiratory Rate 12 Blood Pressure [Standing] 164/85 Blood Pressure [Sitting] 182/83 Blood Pressure [Lying] 194/80 Blood Pressure [Left Arm] 181/84 Blood Pressure [Right Arm] 137/56 Blood Pressure 164/85 Pulse Ox 97 Oxygen Delivery Method Room Air Height 5 ft 3 in Weight 104 lb - General General Appearance: No Acute Distress, Cooperative - Head Head Exam: Normal Inspection - Eye Eye Exam: POSITIVE: Normal Appearance - ENT ENT Exam: POSITIVE: Normal Exam - Neck Neck Exam: Normal Inspection - Respiratory Respiratory Exam: POSITIVE: Clear to Auscultation - Bilaterally - Cardiovascular Cardiovascular Exam: POSITIVE: RRR - GI/Abdominal GI/Abdominal Exam: POSITIVE: Normal Bowel Sounds, Non Tender, Non Distended, Soft, No Organomegaly - Rectal Rectal Exam: POSITIVE: Deferred - External Exam: POSITIVE: Deferred - Extremities Extremities Exam: POSITIVE: Normal Inspection - Back Back Exam: POSITIVE: Normal Inspection - Neurological Neurological Exam: POSITIVE: Alert, Oriented x 3, CN II-XII Intact, No Facial Droop, Speech Intact / Clear - Psychiatric Psychiatric Exam: POSITIVE: Normal Affect - Integumentary Integumentary Exam: POSITIVE: Normal Color Patient Problems - Patient Problem List (1) Dizziness Status: Acute Code(s): R42 - Dizziness and giddiness Category: Medical (2) Hypothyroidism Status: Chronic Onset Date: 06/06/12 Code(s): E03.9 - Hypothyroidism, unspecified Category: Medical (3) Benign essential hypertension Status: Chronic Onset Date: 06/06/12 Code(s): I10 - Essential (primary) hypertension Category: Medical (4) Diabetes Status: Acute Code(s): E11.9 - Type 2 diabetes mellitus without complications Category: Medical
--- NOTE | 2018-11-06 14:58 | OTI REPORT ---
Thank you for the referral of Jaja Morales. She was seen on 11/06/18 for an occupational therapy inpatient evaluation secondary to weakness. SUBJECTIVE: The patient is an 88-year-old female who is being seen today to assess whether or not she can care for herself and live on her own. The patient came into the emergency room yesterday with dizziness, nausea, and vomiting. Prior to admission, the patient states she typically does pretty well for herself. She was able to go into detail about her medication management and her diet for her Diabetes. The patient talked about how she manages herself and how she goes about doing this. The patient reports she does have some balance issues at times, especially when standing to pull up her pants, but she has not fallen and she states she usually can accommodate by hanging onto a counter. The patient does have her bathroom set up with a bar that goes from the ceiling to the floor with three handles that she can grab onto. The patient has a shower chair that she sits on and a long handled shower hose. The patient states she does not have difficulty getting on and off her toilet. The patient lives in a one level home and does not have throw rugs. She uses a three wheeled walker with a seat. The patient reports that she is visually impaired and has macular degeneration that is gradually getting worse every year. The patient's this past year and she states that has been difficult. She reports some of her appliances in her home have stopped working, such as her toaster and forest worker. The patient does have "[employer]" come one time a month to help clean her house. PAST MEDICAL HISTORY: Past medical history can be found in the patient's medical record. OBJECTIVE FINDINGS: Bed mobility: The patient was able to come from supine to sit independently. Activities of daily living: While sitting edge of bed, the patient was asked to get up and get clothes off of the countertop so that the therapist could assess her balance and reaching abilities. The patient was able to grab onto a stable surface and grab her clothes. Since this walker does not have a seat like the one she normally sits on, the therapist did grab the clothes for the patient. The patient was able to sit edge of bed and don lower extremity clothing independently after set up. When pulling up pants, the patient slightly lost her balance x2 but was able to recover by hanging onto the walker and the bed. The patient reports that sometimes she does this at home but she has never fallen. The patient has very good flexibility in her lower extremities and was able to don socks and shoes. The patient was able to don upper extremity clothing independently. Range of motion: The patient has active range of motion of the upper extremities that is within functional limits. Strength: Upper extremity strength was 4/5 throughout bilateral upper extremities. ASSESSMENT: The patient demonstrates ability to care for self at home. The therapist did discuss the patient getting meals on wheels; however, the patient reports that they do not accommodate to a diabetic diet. The therapist did talk to Ashley More about educating the patient about [employer] which can accommodate a diabetic diet and can be delivered to the patient's home. The patient reports that she gets tired of cooking for herself and this may be a good option that would accommodate to her specific needs. The patient is going to look into getting a little bit more help from "[employer]". The patient's Life[employer] did not work when she called it. It is highly recommended that the patient use the [facility] of using the LifeLine. This would assist the patient in case anything where to happen in having an adequate LifeLine at home. Short-Term Goals: To be met by discharge from inpatient: Patient will be able to dress self independently without balance difficulties. Patient will be able to complete all functional stand activities without loss of balance. Patient will improve strength to 4+/5. Long-Term Goals: To be met following discharge from inpatient: Patient will be discharged home, demonstrating safety and independence with all ADLs and functional abilities. TREATMENT PLAN: Patient will more than likely be discharged today. The therapist did talk to Dr. Liu and Ashley More about recommendations for [employer] as well as a little more help at home from "[employer]". Overall the patient is feeling back to her typical self. She does not complain of dizziness today and demonstrated abilities to care for herself at home. If the patient continues to stay at the hospital, we will continue to see her. INITIAL TREATMENT: Treatment today consisted of the initial evaluation followed by the patient dressing self. The patient required contact guard assist to pull pants from knee to waist. The patient also completed functional stand activities at sink with stand by assist. JANA
--- NOTE | 2018-11-06 15:59 | PT.PROG ---
Progress Note Progress Note: S. Patient stated that she is feeling much better today compared to yesterday. O. Patient ambulated 175 feet to the therapy gym where she performed balance activities 3x2 minutes, sit to stands x 10 and #2 box step ups x 10 then ambulated 175 feet back to his room where she was left in her chair with alarm and call light. A. Patient tolerated therapy well, she was able to ambulate with SBG assist. Patient has met all goals at this time. P. Patient is cleared from therapy at this time.
== END 2018-11-06 15:03 | disposition home or self-care (01) ==
LOC: MED/SURG 14:00 → ER 14:00
PROVIDERS: ADMIT Internal Medicine; ATTEND Internal Medicine

== ENCOUNTER 2019-03-22 14:03 | Inpatient (IN) ==
--- NOTE | 2019-03-22 14:08 | PDOC ---
Dizziness HPI - General Chief Complaint: Neurological Complaints Stated Complaint: dizziness since noon Date Seen by Provider: 03/22/19 Time Seen by Provider: 14:08 Source: POSITIVE: Patient, EMS Exam Limitations: POSITIVE: No limitations Nurse's Notes Reviewed & Considered: Yes - History of Present Illness Initial Comments: This is a well-developed, well-nourished, thin-appearing 89-year-old female who is complaining of dizziness. Patient states she's been having episodes of dizziness recently and went to sit down in her easy chair. She noticed easy chair and fell between the chair and the couch and it required her some effort to regain an erect posture and at that time she was dizzy so she sat down in the chair and continued to be dizzy. She then called for EMS who have brought her here for evaluation. She denies any headache, no sore throat, no runny nose, no chest pain or shortness of breath, no nausea vomiting or diarrhea, no hematuria dysuria, no rashes, no myalgias or arthralgias. Body Location Affected: REPORTS: Head Timing: REPORTS: Abrupt Duration: 1 hour Context: REPORTS: Exertion, Fall Quality: REPORTS: Other (Dizziness) Associated Symptoms: DENIES: Hearing Loss, Ringing in Ear(s), Roaring in Ear(s), Ear Pain, Nausea, Vomiting, Movement Sense - Distinct, Sense of Spinning, Sense of Falling, Movement Sense - Vague, Headache, Weakness, Numbness, Diaphoresis, Light Headedness, Fainting, Near Fainting, While Sitting, While Standing, While Supine, With Position Change, Sense of Confusion, Other Current Ability to Walk/Stand: REPORTS: Difficulty Walking (Required assistance) Usual Ability to Walk/Stand: REPORTS: Walker Use Aggrevated by: REPORTS: Position Changes Similar Symptoms Previously: Yes Recently seen/treated/hospitalized: No Any Prior Injuries Related to Current Complaint?: No - Patient Home Medications Home Medications: Home Medications RX: Lancets [Freestyle Lancets] 1 ea PRN 07/07/11 RX: Vit C/Vit E AC/Lut/Copper/Zinc [Preservision Lutein Softgel] 1 cap PO BID #60 cap 12/03/15 polyethylene glycol 3350 17 gram oral powder packet 17 g PO QDAY #527 ea 09/19/17 cholecalciferol (vitamin D3) 2,000 unit capsule 2,000 unit PO QDAY cap 10/17/18 multivitamin tablet 1 tab PO QDAY #30 tab 10/17/18 levothyroxine 125 mcg tablet 125 mcg PO QDAY #90 tab 01/30/19 glipizide ER 5 mg tablet, extended release 24 hr 5 mg PO QDAY #30 tab 02/18/19 irbesartan 150 mg tablet 150 mg PO QDAY #90 tab 02/28/19 - Patient Allergies Allergies/Adverse Reactions: Allergies Allergy/AdvReac Type Severity Reaction Status Date / Time clopidogrel bisulfate Allergy Intermediate RASH Verified 03/22/19 16:29 [From Plavix] lansoprazole [From Prevacid] Allergy Intermediate RASH Verified 03/22/19 16:29 omeprazole [From Prilosec] Allergy Intermediate RASH Verified 03/22/19 16:29 omeprazole magnesium Allergy Intermediate RASH Verified 03/22/19 16:29 [From Prilosec] pantoprazole sodium Allergy Intermediate RASH Verified 03/22/19 16:29 [From Protonix] propranolol HCl Allergy Intermediate RASH Verified 03/22/19 16:29 [From Inderal] atenolol [From Tenormin] Allergy Unknown NOT Verified 03/22/19 16:29 APPLICABLE clarithromycin [From Biaxin] AdvReac Intermediate NOT Verified 03/22/19 16:29 APPLICABLE pregabalin [From Lyrica] AdvReac Intermediate NOT Verified 03/22/19 16:29 APPLICABLE codeine [Codeine] AdvReac Mild NOT Verified 03/22/19 16:29 APPLICABLE quinapril HCl [From Accupril] AdvReac Mild NOT Verified 03/22/19 16:29 APPLICABLE alendronate sodium AdvReac NOT Verified 03/22/19 16:29 [From Fosamax] APPLICABLE DIURETIC AdvReac Intermediate NOT Uncoded 03/22/19 16:29 APPLICABLE Past Medical History - heen HEENT History: Macular Degeneration, Cataracts Cardiovascular History: Hypertension, CAD, DVTs Respiratory History: Denies History Gastrointestinal History: GERD Genitourinary History: Renal Disease, Incontinence Endocrine History: Type 2 Diabetes (oral) Musculoskeletal History: Arthritis, Joint Pain Neurological History: TIA, Seizures Additional Neurological History: WAS ON SEIZURE MEDS FOR 2 YRS THEN THEY STOPPED AND HAVENT TAKEN MEDS SINCE. Blood Disorders: Denies History Psychiatric History: Denies History History of Sexually Transmitted Diseases: No Cancer History: Denies History History of MDRO: No History of Other Communicable Diseases: No Alcohol Use: None In the Past 12 Months, Have Used or Abuse Any Substance: None Previous Surgical History: Yes Type / Date of Surgery: RIGHT CTR/ PARTIAL THYROIDECTOMY/ BILAT BREAST BX/ AIME/ APPY/ HYST/ BLADDER SUSPENSION/ RIGHT CATARACT FEBRUARY 05, 2017 Anesthesia Reactions: No Malignant Hyperthermia: No Significant Family History: Diabetes, Heart disease, Hypertension, Renal disease, Vascular disease ROS - Limitations ROS Limitations: No Limitations Constitution: REPORTS: Denies Symptoms Cardiovascular: REPORTS: Denies Cardiac Symptoms Respiratory: REPORTS: Denies Resp Symptoms Neurological: REPORTS: Dizziness Gastrointestinal: REPORTS: Denies GI Symptoms Endocrine: REPORTS: Denies Symptoms Musculoskeletal: REPORTS: Denies MS Symptoms Genitourinary: REPORTS: Denies Symptoms Eyes: REPORTS: Denies Symptoms ENT: REPORTS: Denies Symptoms Skin: REPORTS: Denies Skin Symptoms Lympathic: REPORTS: Denies Lympathic Symptoms Immunologic: POSITIVE: Denies Symptoms Psychiatric: POSITIVE: Denies Psych Symptoms Dizziness PE - General Appearance General Appearance: POSITIVE: No Acute Distress, Alert - HEENT HEENT: POSITIVE: Head Inspection Nml, Eyes Inspection Nml, Ears Inspection Nml, Nose Inspection Nml, Oral/Dental Inspect. Nml, Pharynx Inspect. Nml, PERRL, EOMI - Pupil Size Pupil Size: 4 mm: Bilateral - Neck Neck: POSITIVE: Supple - Respiratory Respiratory: POSITIVE: No Respiratory Distress, Breath Sounds Normal - Cardiovascular Cardiovascular: POSITIVE: Regular Rate & Rhythm, No Murmur, No Gallop, Heart Sounds Normal Peripheral Pulses: Radial (L): 4+ - Abdomen Abdomen: Soft: (All Quadrants), Normal Bowel Sounds: (All Quadrants), Denies Tenderness: (All Quadrants), No Splenomegaly: (All Quadrants), No Hepatomegaly: (All Quadrants), No Guarding: (All Quadrants), No Rebound: (All Quadrants), No Palpable Pulse: (All Quadrants), No Palpabale Mass: (All Quadrants), No Distention: (All Quadrants), No Rigidity: (All Quadrants) - Skin Skin: POSITIVE: Intact, Normal For Race, Warm, Dry, No Rash - Extremities Extremity: Non-Tender: (All Extremities), Normal ROM: (All Extremities), Normal Inspection: (All Extremities), Pelvis Stable: (All Extremities) - Neuro/Psych Neuro/Psych: POSITIVE: Alert, Affect Appropriate, Mood Appropriate, Normal Speech, Normal Cognition Cranial Nerves: POSITIVE: Normal As Tested, No Evidence of Acute CVA Cerebellar: POSITIVE: Normal As Tested Sensorimotor: POSITIVE: No Motor Deficits, No Sensory Deficits Dizziness Progress - Results Reviewed by me Xrays/CTs/US Reviewed by me: Yes Lab Results Reviewed by Me: Yes Lab Results:: Laboratory Results 03/22/19 03/22/19 03/22/19 14:43 14:43 14:43 WBC 7.1 RBC 3.10 L Hgb 10.3 L Hct 30.5 L MCV 98 MCH 33.1 H MCHC 33.7 RDW Coeff of Alberto 13.4 Plt Count 227 MPV 6.2 L Immature Gran % (Auto) 0 Neut % (Auto) 82.0 H Lymph % (Auto) 9.9 L [place] % (Auto) 5.4 Eos % (Auto) 2.4 Baso % (Auto) 0.3 Immature Gran # (Auto) 0 Neut # (Auto) 5.84 Lymph # (Auto) 0.70 [place] # (Auto) 0.38 Eos # (Auto) 0.17 Baso # (Auto) 0.02 WBC Morphology Comment Normal morphology Plt Morphology Comment Normal morphology RBC Morph Comment Normal morphology PT 12.3 INR 1.07 Sodium 133 L Potassium 4.1 Chloride 95 L Carbon Dioxide 25 Anion Gap 13 BUN 52 H Creatinine 2.2 H Estimated GFR Disc Ruler Operator BUN/Creatinine Ratio 23.63 H Glucose 155 H Calculated Osmolality 292.0 Calcium 8.0 L Magnesium 2.1 Total Bilirubin 0.4 AST 27 ALT 32 Alkaline Phosphatase 87 CK-MB (CK-2) Troponin I Handheld C-Reactive Protein 0.8 NT-Pro-B Natriuret Pep 588 H Total Protein 5.7 L Albumin 3.2 L Globulin 2.5 Albumin/Globulin Ratio 1.20 L TSH Free T4 Ur Collection Type Urine Color Urine Clarity Urine pH Ur Specific [place] Urine Protein Urine Glucose (UA) Urine Ketones Urine Occult Blood Urine Nitrate Urine Bilirubin Urine Urobilinogen Ur Leukocyte Esterase Urine RBC Urine WBC Ur Squamous Epith Cells Ur Renal Epithelial Cell Urine Crystals Urine Bacteria Urine Casts Urine Mucus Urine Trichomonas Urine Yeast Ur Culture Indicated? 03/22/19 03/22/19 03/22/19 14:43 14:43 14:43 WBC RBC Hgb Hct MCV MCH MCHC RDW Coeff of Alberto Plt Count MPV Immature Gran % (Auto) Neut % (Auto) Lymph % (Auto) [place] % (Auto) Eos % (Auto) Baso % (Auto) Immature Gran # (Auto) Neut # (Auto) Lymph # (Auto) [place] # (Auto) Eos # (Auto) Baso # (Auto) WBC Morphology Comment Plt Morphology Comment RBC Morph Comment PT INR Sodium Potassium Chloride Carbon Dioxide Anion Gap BUN Creatinine Estimated GFR BUN/Creatinine Ratio Glucose Calculated Osmolality Calcium Magnesium Total Bilirubin AST ALT Alkaline Phosphatase CK-MB (CK-2) Cancelled 5.24 H Troponin I Handheld 0.010 C-Reactive Protein NT-Pro-B Natriuret Pep Total Protein Albumin Globulin Albumin/Globulin Ratio TSH 7.67 H Free T4 1.51 Ur Collection Type Urine Color Urine Clarity Urine pH Ur Specific [place] Urine Protein Urine Glucose (UA) Urine Ketones Urine Occult Blood Urine Nitrate Urine Bilirubin Urine Urobilinogen Ur Leukocyte Esterase Urine RBC Urine WBC Ur Squamous Epith Cells Ur Renal Epithelial Cell Urine Crystals Urine Bacteria Urine Casts Urine Mucus Urine Trichomonas Urine Yeast Ur Culture Indicated? 03/22/19 14:59 WBC RBC Hgb Hct MCV MCH MCHC RDW Coeff of Alberto Plt Count MPV Immature Gran % (Auto) Neut % (Auto) Lymph % (Auto) [place] % (Auto) Eos % (Auto) Baso % (Auto) Immature Gran # (Auto) Neut # (Auto) Lymph # (Auto) [place] # (Auto) Eos # (Auto) Baso # (Auto) WBC Morphology Comment Plt Morphology Comment RBC Morph Comment PT INR Sodium Potassium Chloride Carbon Dioxide Anion Gap BUN Creatinine Estimated GFR BUN/Creatinine Ratio Glucose Calculated Osmolality Calcium Magnesium Total Bilirubin AST ALT Alkaline Phosphatase CK-MB (CK-2) Troponin I Handheld C-Reactive Protein NT-Pro-B Natriuret Pep Total Protein Albumin Globulin Albumin/Globulin Ratio TSH Free T4 Ur Collection Type Clean catch urine Urine Color Yellow Urine Clarity Slightly cloudy Urine pH 6.5 Ur Specific [place] 1.010 Urine Protein >300 A Urine Glucose (UA) Negative Urine Ketones Negative Urine Occult Blood Trace-lysed H Urine Nitrate Negative Urine Bilirubin Negative Urine Urobilinogen 0.2 Ur Leukocyte Esterase Small Urine RBC 1-3 Urine WBC 5-10 Ur Squamous Epith Cells Rare Ur Renal Epithelial Cell None Urine Crystals None Urine Bacteria Many H Urine Casts None Urine Mucus None Urine Trichomonas None Urine Yeast None Ur Culture Indicated? Culture set CBC and BMP: 03/22/19 14:43 03/23/19 04:15 EKG Interpreted/Reviewed By Me:: Yes (sinus rhythm with a left bundle branch block) EKG Interpretation:: POSITIVE: Abnormal EKG - Patient's Progress Pain Medication Addressed: POSITIVE: Yes Re-Examine Time:: 15:33 Status: POSITIVE: Improved MDM / ED Course: Patient was evaluated, an IV started, blood drawn and sent to the lab for studies, CT examination of her head and chest x-ray were obtained. Findings: CBC shows an anemia with hemoglobin of 10.3 and hematocrit of 30.5 with normal platelets and white count, neutrophils are 82%, lymphocytes are 9.9%. Coag studies show PT of 12.3 and INR 1.07. CMP shows dyscrasias with sodium of 133, chloride of 95, BUN of 22, creatinine 2.2, calcium of 8.0, glucose 155, total protein 5.7, albumin 2.2. Magnesium is 2.1. Troponin is 0.010. CRP is 0.8. BNP is 588. Urinalysis is positive for bacteria. Chest x- ray shows no acute cardiopulmonary decompensation. CT scan of her head shows no acute intracranial abnormalities. Assessment: #1 renal failure. #2 urinary tract infection. 3 dizziness. Or for anemia. Plan: Patient receives IV Rocephin and is being admitted by the hospitalist. - Consult Consult (If Yes, Name of Consulting MD & Time Called): Yes (Dr. Liu) Consulting MD will see pt:: POSITIVE: [facility] [place] Admit Counseled: POSITIVE: Patient, RE: Lab Results, RE: Radiology Results, RE: DX, RE: Need for F/U Patient Care Time - Estimated PCT Patient Care Time (In Minutes): 45 Vital Signs - Recent Vital Signs Vital Signs: Vital Signs (Last 8 hours) Temp Pulse Resp BP Pulse Ox 03/23/19 04:31 97.5 F 57 L 16 142/65 96 03/22/19 23:58 97.4 F 61 16 130/60 91 - VS Reviewed Vital Signs Reviewed: Yes Discharge Clinical Impression: Urinary tract infection, Renal insufficiency, Anemia, Dizziness Discharge Disposition: Admit to Inpatient Condition: Stable Date Decision to Admit to Inpatient: 03/22/19 Time Decision to Admit to Inpatient: 15:34
[2019-03-22] MEDS ORDERED: Sodium Chloride 0.9% 1,000 ML PRIMARY IV ONE (14:09)
[2019-03-22] MEDS ORDERED: MECLIZINE 25 MG CHEWABLE TABLET PO ONE (14:09)
[2019-03-22] MEDS ORDERED: ONDANSETRON 4 MG/2 ML VIAL IVP ONE (14:09)
--- NOTE | 2019-03-22 14:33 | EKG ---
[address] [address] Measurements Intervals [place] Rate: 58 P: 73 NV: 164 QRS: 30 QRSD: 142 T: 11 QT: 510 QTc: 508 Interpretive Statements SINUS BRADYCARDIA LEFT BUNDLE BRANCH BLOCK Compared to ECG 11/05/2018 14:51:33 No significant changes Electronically Signed On 03-22-19 14:59:21 MDT by Vickey Simms [email or web address]
[2019-03-22 14:53] LABS: Hematocrit [HCT] 30.5 % (37.0-47.0); Hemoglobin [HGB] 10.3 g/dL (12.0-16.0); MEAN CORPUSCULAR HEMOGLOBIN 33.1 PG (27-31); MEAN CORPUSCULAR HGB CONC 33.7 g/dL (33-37); MEAN CORPUSCULAR VOLUME 98 FL (81-99); MEAN PLATELET VOLUME 6.2 FL (7.4-12.2); MONOCYTES % (AUTO) 5.4 % (5-15)
[2019-03-22 14:54] LABS: BASOPHILS # (AUTO) 0.02 10*3/UL; BASOPHILS % (AUTO) 0.3 % (0-1); EOSINOPHILS # (AUTO) 0.17 10*3/UL; EOSINOPHILS % (AUTO) 2.4 % (0-8); MONOCYTES # (AUTO) 0.38 10*3/UL (0.3-0.8); NEUTROPHILS # (AUTO) 5.84 10*3/UL; PLATELET MORPHOLOGY COMMENT NORMAL MORPHOLOGY (NORM); RBC MORPHOLOGY COMMENT NORMAL MORPHOLOGY (NORM); WBC MORPHOLOGY COMMENT NORMAL MORPHOLOGY (NORM)
[2019-03-22 15:00] LABS: BLOOD UREA NITROGEN 52 mg/dL (7-22); BUN/CREATININE RATIO 23.63 (6-20); SERUM ALBUMIN 3.2 g/dL (3.5-4.8)
[2019-03-22 15:04] LABS: BILIRUBIN,URINE NEGATIVE (NEG); CLARITY,URINE Slightly Cloudy (CLEAR); COLOR,URINE YELLOW (Y); GLUCOSE, URINE (UA) NEGATIVE (NEG); OCCULT BLOOD,URINE Trace-lysed (NEG); PH,URINE 6.5 (5.0-8.5); PROTEIN,URINE >300 mg/dl (NEG); UROBILINOGEN,URINE 0.2 EU/dL (0.2)
[2019-03-22 15:15] LABS: BACTERIA,URINE MANY; SQUAMOUS EPITHELIAL CELL,UR RARE; URINE SAMPLE TYPE CLEAN CATCH URINE
[2019-03-22] MEDS ORDERED: cefTRIAXone Inj 2 GM in Sodium Chloride 0.9% 100 ML IV ONE (15:16)
--- NOTE | 2019-03-22 15:30 | DI ---
CT Head WO Contrast 03/22/2019 2:09 PM History: [facility] [place] [facility] ^dizzy Comparison: 11/05/2018, 10/05/2008. Procedure: Noncontrast CT images through the head were reviewed. Findings: There is no acute intracranial hemorrhage or extra-axial fluid collection. The ventricles a re symmetric. There is moderate global atrophy which is within the expected range for age. Decreased attenuation in the periventricular and subcortical white matter is consistent with moderate chronic s mall vessel ischemic changes. There is otherwise normal arauz-white differentiation without focal mass or mass-effect. Coarse cortical and ventricular calcifications are not significantly changed from pr ior imaging. The visualized portions of the paranasal sinuses and mastoid air cells are clear. Review of the osseous structures demonstrate no depressed calvarial fracture or aggressive osseous lesion. There are postsurgical changes of the bilateral globes. The facial soft tissues are unremarkable. The re are atheromatous calcifications within the intracranial vasculature. Impression: 1. No acute intracranial findings. 2. Age related senescent changes as above.
--- NOTE | 2019-03-22 15:33 | DI ---
XR CXR 1VW 03/22/2019 2:09 PM [place] [facility] [place] Comparison: 07/09/2011. Findings: Frontal views of the chest demonstrates normal aeration without focal consolidation. There is no pneumothorax or pleural effusion. The cardiomediastinal silhouette is at the upper limits of no rmal with atheromatous calcifications in the arch of the tortuous thoracic aorta. The osseous structu res are notable for amorphous calcifications that project over the superior margin of the right humer al head. Impression: 1. There is no dense consolidation, pleural effusion, or pneumothorax. 2. Borderline cardiomegaly. 3. There are amorphous calcifications project over the superior margin of the right humeral head. Ded icated imaging of the shoulder may be obtained as clinically indicated.
--- NOTE | 2019-03-22 16:22 | PDOC ---
HPI - History of Present Illness Date of Service: 03/22/19 Time of Service: 16:30 Chief Complaint: Dizziness, urinary frequency that started today, fell today. History of Present Illness: This is an 89 years old the female with medical history significant for history of diabetes, hypertension, chronic renal insufficiency stage III who presented to the hospital with history of dizziness that started today she said she was walking using her walker and then started to feel dizzy she described it as spinning sensation there was no vomiting she went back and she tried to sit down she however missed the chair and fell on her buttocks she was able to stand up and called for help through her [facility] and she was brought to the hospital for evaluation. She did describe a history of frequency and some abdominal discomfort that started today there was no dysuria. She did say that she started taking cranberry juice today. In the ER she had a CT head which was negative, she had a UA was abnormal she was given Rocephin and was admitted. S he did also receive meclizine. She is not as dizzy as earlier. She is now back to her usual self. No history of speech difficulty, or weakness on one side more than the other. No double vision. Past Medical History Medical History: 1. Diabetes on oral hyperglycemic agent. 2. Hypertension. 3. Hypothyroidism. 4. Chronic renal insufficiency stage III. 5. Macular degeneration. 6. History of carotid artery stenosis. 7. 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 Appendectomy. 2. Carpal tunnel surgery. 3. section. 4. Cholecystectomy. 5. History of thyroid surgery Past Social History: Does not smoke, does not drink. No drugs. Lives here in [place] by herself. Has 2 sons 1 lives in [place] and the other lives in [place]. She recently lost her . Tobacco Use: Never Smoker In the Past 12 Months, Have Used or Abuse Any of the Following Substance: None Medication / Allergies Home Medications: Home Medications Medication Instructions Recorded Confirmed Type Lancets [Freestyle Lancets] 1 ea ROLLY PRN 07/07/11 03/22/19 History Vit C/Vit E AC/Lut/Copper/Zinc 1 cap PO BID #60 cap 12/03/15 03/22/19 History [Preservision Lutein Softgel] polyethylene glycol 3350 17 gram 17 g PO QDAY #527 ea 09/19/17 03/22/19 Rx oral powder packet cholecalciferol (vitamin D3) 2,000 2,000 unit PO QDAY cap 10/17/18 03/22/19 History unit capsule multivitamin tablet 1 tab PO QDAY #30 tab 10/17/18 03/22/19 History sitagliptin 100 mg tablet 100 mg Tablet#6 Samples 01/16/19 01/16/19 Sample levothyroxine 125 mcg tablet 125 mcg PO QDAY #90 tab 01/30/19 03/22/19 Rx glipizide ER 5 mg tablet, extended 5 mg PO QDAY #30 tab 02/18/19 03/22/19 Rx release 24 hr irbesartan 150 mg tablet 150 mg PO QDAY #90 tab 02/28/19 03/22/19 Rx Allergies/Adverse Reactions: Allergies Allergy/AdvReac Type Severity Reaction Status Date / Time clopidogrel bisulfate Allergy Intermediate RASH Verified 03/22/19 16:29 [From Plavix] lansoprazole [From Prevacid] Allergy Intermediate RASH Verified 03/22/19 16:29 omeprazole [From Prilosec] Allergy Intermediate RASH Verified 03/22/19 16:29 omeprazole magnesium Allergy Intermediate RASH Verified 03/22/19 16:29 [From Prilosec] pantoprazole sodium Allergy Intermediate RASH Verified 03/22/19 16:29 [From Protonix] propranolol HCl Allergy Intermediate RASH Verified 03/22/19 16:29 [From Inderal] atenolol [From Tenormin] Allergy Unknown NOT Verified 03/22/19 16:29 APPLICABLE clarithromycin [From Biaxin] AdvReac Intermediate NOT Verified 03/22/19 16:29 APPLICABLE pregabalin [From Lyrica] AdvReac Intermediate NOT Verified 03/22/19 16:29 APPLICABLE codeine [Codeine] AdvReac Mild NOT Verified 03/22/19 16:29 APPLICABLE quinapril HCl [From Accupril] AdvReac Mild NOT Verified 03/22/19 16:29 APPLICABLE alendronate sodium AdvReac NOT Verified 03/22/19 16:29 [From Fosamax] APPLICABLE DIURETIC AdvReac Intermediate NOT Uncoded 03/22/19 16:29 APPLICABLE Review of Systems - Review of Systems All Systems: Reviewed & No Additional Complaints Except as Stated Exam - Vitals Vital Signs: Vital Signs Temperature 96.8 F Pulse Rate [Pulse Oximeter 60 Right] Respiratory Rate 18 Blood Pressure [Left Arm] 184/81 Pulse Ox 97 Oxygen Flow Rate RA Oxygen Delivery Method Room Air Height 5 ft 3 in Weight 100 lb - General General Appearance: No Acute Distress, Cooperative - Head Head Exam: Normal Inspection - Eye Eye Exam: POSITIVE: Normal Appearance - ENT ENT Exam: POSITIVE: Normal Exam - Neck Neck Exam: Normal Inspection - Respiratory Respiratory Exam: POSITIVE: Clear to Auscultation - Bilaterally - Cardiovascular Cardiovascular Exam: POSITIVE: RRR, Systolic Murmur - GI/Abdominal GI/Abdominal Exam: POSITIVE: Normal Bowel Sounds, Non Tender, Non Distended, Soft, No Organomegaly - Rectal Rectal Exam: POSITIVE: Deferred - External Exam: POSITIVE: Deferred - Extremities Extremities Exam: POSITIVE: Normal Inspection - Neurological Neurological Exam: POSITIVE: Alert, Oriented x 3, CN II-XII Intact, No Facial D donaldo, Speech Intact / Clear, Moves All Extremities Equally Additional Neurological Exam Details: There is horizontal nystagmus noted on looking to the right. No evidence of intention tremor. - Psychiatric Psychiatric Exam: POSITIVE: Normal Affect - Integumentary Integumentary Exam: POSITIVE: Normal Color Results - Labs CBC and BMP: 03/22/19 14:43 03/22/19 14:43 - EKG Data -: EKG Interpreted by Me Rate: Bradycardia - EKG Data When Compared to Previous EKG(s) There Are: Other (EKG showed sinus bradycardia with left bundle branch block) - Imaging Status: Report Reviewed by Me (CT head 1. No acute intracranial findings.) Assessment and Plan - Patient Problems (1) Dizziness Current Visit: Yes Status: Acute Comment: Looks more like a vertigo, with the presence of nystagmus suggests this is peripheral in etiology. Will write for meclizine as needed. write for some IV fluids. Will treat the UTI. Code(s): R42 - Dizziness and giddiness (2) Diabetes Current Visit: No Status: Acute Comment: Continue present medications Code(s): E11.9 - Type 2 diabetes mellitus without complications (3) Urinary tract infection Current Visit: Yes Status: Acute Comment: Continue with the IV antibiotics until we have culture results Code(s): N39.0 - Urinary tract infection, site not specified (4) Hypothyroidism Current Visit: No Status: Chronic Onset Date: 06/06/12 Comment: Same medications Code(s): E03.9 - Hypothyroidism, unspecified
[2019-03-22] MEDS ORDERED: ACETAMINOPHEN 325 MG TABLET PO PRN (17:06)
[2019-03-22] MEDS ORDERED: ONDANSETRON 4 MG/2 ML VIAL IVP PRN (17:06)
[2019-03-22] MEDS ORDERED: CALCIUM CARBONATE 500 MG (TUMS) CHEWABLE TABLET PO PRN (17:06)
[2019-03-22] MEDS ORDERED: LIDOCAINE W/ SODIUM BICARB 0.5 ML SYR SUBD PRN (17:06)
[2019-03-22] MEDS ORDERED: MECLIZINE 25 MG CHEWABLE TABLET PO PRN (17:10)
[2019-03-22] MEDS ORDERED: Lactated Ringers 1,000 ML PRIMARY IV SCH (17:15)
[2019-03-23] MEDS: LEVOTHYROXINE 125 MCG TABLET PO SCH (04:36)
[2019-03-23 05:51] LABS: BLOOD UREA NITROGEN 49 mg/dL (7-22)
--- NOTE | 2019-03-23 07:53 | PDOC(PROG) ---
Date of Service: 03/23/19 Time of Service: 08:00 Interval History: Subjective Feels better this morning. No dizziness today. Have some lower abdominal discomfort but otherwise denying other symptoms. Objective : Data - Labs CBC and BMP: 03/22/19 14:43 03/23/19 04:15 Objective : Exam - General General Appearance: No Acute Distress, Cooperative, Thin - Head Head Exam: Normal Inspection - Eye Eye Exam: Normal Appearance - ENT ENT Exam: Normal Exam - Neck Neck Exam: Normal Inspection - Respiratory Respiratory Exam: Clear to Auscultation - Bilaterally - Cardiovascular Cardiovascular Exam: RRR - GI/Abdominal GI/Abdominal Exam: Normal Bowel Sounds, Non Tender, Non Distended, Soft, No Organomegaly - Rectal Rectal Exam: Deferred - External Exam: Deferred - Extremities Extremities Exam: Normal Inspection - Back Back Exam: Normal Inspection - Neurological Neurological Exam: Alert, Oriented x 3, CN II-XII Intact, No Facial Droop, Speech Intact / Clear, Moves All Extremities Equally Additional Neurological Exam Details: No nystagmus today. - Psychiatric Psychiatric Exam: Normal Affect - Integumentary Integumentary Exam: Normal Color Assessment and Plan - Patient Problems (1) Dizziness Current Visit: Yes Status: Acute Comment: We'll ask PT and OT to work with her. it is Described more like vertigo. This is seem to be resolved. I think we'll stop her IV fluid. Code(s): R42 - Dizziness and giddiness (2) Diabetes Current Visit: No Status: Acute Comment: Continue same medication Code(s): E11.9 - Type 2 diabetes mellitus without complications (3) Urinary tract infection Current Visit: Yes Status: Acute Comment: Continue Rocephin until we get culture results Code(s): N39.0 - Urinary tract infection, site not specified (4) Hypothyroidism Current Visit: No Status: Chronic Onset Date: 06/06/12 Comment: Same medication Code(s): E03.9 - Hypothyroidism, unspecified (5) History of hypertension Current Visit: Yes Status: Acute Comment: We'll try to see if we can get her own medication and start that today. Code(s): Z86.79 - Personal history of other diseases of the circulatory system
[2019-03-23] MEDS: CHOLECALCIFEROL 1000 IU TABLET PO SCH (10:25)
[2019-03-23] MEDS: cefTRIAXone Inj 2 GM in Sodium Chloride 0.9% 100 ML IV SCH (16:16)
[2019-03-23] MEDS: IRBESARTAN 150 MG PO SCH ×2 (16:16→19:14)
[2019-03-24] MEDS: LEVOTHYROXINE 125 MCG TABLET PO SCH (04:59)
[2019-03-24 06:49] VITALS: TEMP 97.8
[2019-03-24] MEDS ORDERED: POLYETHYLENE GLYCOL 3350 17 GM POWDER PO ONE (08:53)
[2019-03-24] MEDS: IRBESARTAN 150 MG PO SCH (09:01)
[2019-03-24] MEDS: CHOLECALCIFEROL 1000 IU TABLET PO SCH (09:01)
--- NOTE | 2019-03-24 10:59 | OT.PROG ---
Progress Note Progress Note: S: pt stated that she was feeling much better today. O: tx consisted of UE yellow RTB exercises in all planes of motion x 10 each, 2# biceps curls x10, LE clams and resistive hamstring curls x 10 each, functional ambulation x 300' with FWW and CGA for safety. A: pt tolerated session well. pt showed no signs of dizziness during tx session. P: continue POC
--- NOTE | 2019-03-24 11:33 | DCSUMMARY ---
Hospitalization Summary Admit Date: 03/22/2019 Discharge Date: 03/24/19 Hospital Course: Discharge diagnoses 1. Episode of vertigo resolved, likely peripheral in etiology 2. UTI 3. History of diabetes 4. History of chronic kidney disease stage III 5. History of hypertension 6. History of macular degeneration 7. History of hypothyroidism Hospital course This is an 89 years old female with medical history with medical history significant for history of diabetes, hypertension, chronic kidney disease stage III who presented to the hospital with dizziness that started the day of admission. She said she was walking using her walker and then she started to feel dizzy which is more like spinning sensation there was no vomiting she went back and tried to sit down however she missed the chair and fell on her buttocks. She was able to stand up and called for help through her [facility] and she was brought to the ER for evaluation. She did give a history of urinary frequency and some abdominal discomfort that started the day of admission there was no dysuria. In the ER a CT of the head was negative, UA was abnormal she received rocephin and was admitted. She did receive also meclizine. When I saw her she started to improve her physical exam was remarkable for nystagmus on l ooking to the right. We thought the vertigo was probably secondary to peripheral etiology. We continued with antibiotic the growth showed Escherichia coli. We gave her 3 days of antibiotics and discharged home. She was seen by physical therapy and cleared to go home to. She need follow-up with her PCP Discharge instructions Diet regular Activity as started Medications Current Medication(s) Medication Instructions Recorded Confirmed Type Lancets [Freestyle Lancets] 1 ea MC PRN 07/07/11 03/22/19 History Vit C/Vit E AC/Lut/Copper/Zinc 1 cap PO BID #60 cap 12/03/15 03/22/19 History [Preservision Lutein Softgel] polyethylene glycol 3350 17 gram 17 g PO QDAY #527 ea 09/19/17 03/22/19 Rx oral powder packet cholecalciferol (vitamin D3) 2,000 2,000 unit PO QDAY cap 10/17/18 03/22/19 History unit capsule multivitamin tablet 1 tab PO QDAY #30 tab 10/17/18 03/22/19 History levothyroxine 125 mcg tablet 125 mcg PO QDAY #90 tab 01/30/19 03/22/19 Rx glipizide ER 5 mg tablet, extended 5 mg PO QDAY #30 tab 02/18/19 03/22/19 Rx release 24 hr irbesartan 150 mg tablet 150 mg PO QDAY #90 tab 02/28/19 03/22/19 Rx Follow-up with PCP in 1-2 weeks Condition at discharge was stable for discharge Exam - Vitals Vital Signs: Vital Signs Temperature 97.8 F Temperature Source Oral Pulse Rate [Pulse Oximeter 58 Right] Pulse Rate 58 Respiratory Rate 14 Blood Pressure [Right Arm] 140/65 Blood Pressure [Left Arm] 146/67 Blood Pressure 175/82 Pulse Ox 95 Oxygen Flow Rate RA Oxygen Delivery Method Room Air Height 5 ft 3 in Weight 101 lb 9.6 oz - General General Appearance: No Acute Distress, Cooperative - Head Head Exam: Normal Inspection - Eye Eye Exam: POSITIVE: Normal Appearance - ENT ENT Exam: POSITIVE: Normal Exam - Neck Neck Exam: Normal Inspection - Respiratory Respiratory Exam: POSITIVE: Clear to Auscultation - Bilaterally - Cardiovascular Cardiovascular Exam: POSITIVE: RRR - GI/Abdominal GI/Abdominal Exam: POSITIVE: Normal Bowel Sounds, Non Tender, Non Distended, Soft, No Organomegaly - Rectal Rectal Exam: POSITIVE: Deferred - External Exam: POSITIVE: Deferred - Extremities Extremities Exam: POSITIVE: Normal Inspection - Neurological Neurological Exam: POSITIVE: Alert, Oriented x 3, CN II-XII Intact, No Facial Droop, Speech Intact / Clear, Moves All Extremities Equally - Psychiatric Psychiatric Exam: POSITIVE: Normal Affect Patient Problems - Patient Problem List (1) Dizziness Current Visit: Yes Status: Acute Code(s): R42 - Dizziness and giddiness Category: Medical (2) Diabetes Current Visit: No Status: Acute Code(s): E11.9 - Type 2 diabetes mellitus without complications Category: Medical (3) Urinary tract infection Current Visit: Yes Status: Acute Code(s): N39.0 - Urinary tract infection, site not specified Category: Medical (4) Hypothyroidism Current Visit: No Status: Chronic Onset Date: 06/06/12 Code(s): E03.9 - Hypothyroidism, unspecified Category: Medical (5) History of hypertension Current Visit: Yes Status: Acute Code(s): Z86.79 - Personal history of other diseases of the circulatory system Category: Medical
[2019-03-24 13:06] VITALS: BP 133/69; RESP 20; O2SAT 98
[2019-03-24] MEDS: cefTRIAXone Inj 2 GM in Sodium Chloride 0.9% 100 ML IV SCH (14:02)
--- NOTE | 2019-03-25 10:44 | PTI REPORT ---
Thank you for the referral of Jaja Morales. She was seen on 03/23/19 for an inpatient evaluation secondary to weakness and dizziness. SUBJECTIVE: The patient is an 89-year-old female who states that yesterday she became very dizzy and reports that when she was walking, she went to go sit in her chair because she started to feel like she was spinning. She missed the chair and ended up on the floor. She denies any injury from the fall but states she was able to get herself back up and then hit her [employer] button in order to be brought to the hospital. The patient states that her symptoms started a couple of days ago but really got bad yesterday with her dizziness. She reports that almost everything was setting off her dizziness, especially being up and moving. She is not sure if it was related to her blood pressure or the fact that she hadn't eaten anything. Once the patient was brought to the hospital she was diagnosed with a UTI and has started treatment for that. The patient reports that she hasn't had any dizziness at all today and feels that it is because her blood pressure is under better control. The patient reports that she lives alone here in [place]. She states that she doesn't have any stairs at home, but she does have a couple if she goes into the front door and there is a railing. She reports that she primarily uses a four wheeled walker when at home or in the community. She is independent with ADLs and reports no other recent falls besides her one yesterday with her dizziness. The patient states that she does take care of her own medications but she does have macular degeneration and it is becoming harder for her to see. She does get some help from [employer] Walker with [employer] every other week; they help run some errands and things like that for the patient. The patient states that she does have a couple sons, but none of them live around this area. The patient is fearful of getting dizzy and falling at home and does express that. PAST MEDICAL HISTORY: Past medical history can be found in the patient's medical record. OBJECTIVE FINDINGS: General observations: The patient was alert and oriented to setting upon PT arrival. The patient was sitting up in the chair and willing to work with therapy. Strength: The patient demonstrated 4/5 bilateral lower extremity strength and demonstrated 4+/5 left arm strength, 4/5 right shoulder strength, and 4+/5 right elbow and wrist strength. Transfers: The patient was able to transfer from seated to standing with stand by assist x1 for safety. Ambulation: The patient utilized a front wheeled walker and ambulated to the bathroom. The patient ambulated 150 feet around the nurse's station. Approximately jail through, she did state that she felt very tired but was able to ambulate safely. We did have one time with an almost loss of balance to the left when coming back into the room, but the patient was able to maintain her balance. Activities of daily living: The patient was able to perform toileting hygiene independently and was able to change her brief. ASSESSMENT: The patient has fair rehab potential secondary to her age and past medical history. Problem List: Dizziness Decreased endurance/activity tolerance Weakness Short-Term Goals: To be met by discharge from inpatient: Patient will be able to ambulate 150 feet safely and independently with walker without signs and symptoms of dizziness. Patient will be able to tolerate 30 minutes of physical therapy activity in order to improve her overall endurance and strength to return back home safely. Patient will report no dizziness with transfers and when up and moving. Long-Term Goals: To be met following discharge from inpatient: Patient may be seen by outpatient physical therapy if deemed necessary upon time of discharge. TREATMENT PLAN: Patient will be seen B.I.D during the week and one time per day over the weekend as an inpatient to address the above goals and objectives. INITIAL TREATMENT: Treatment today consisted of the initial evaluation and one unit of functional activity. Please see objective findings. Following ambulation the patient transferred back to a seated position. The therapist did test and the patient did have some nystagmus with horizontal looking that was noticeable in the left eye. The patient did report a little dizziness when moving from left to right with her head and up and down. When the therapist did take the patient through a couple seated tests to provoke nystagmus, she was not dizzy with those tests. The therapist suspects she may have a little BPPV going on with the horizontal canal that could contribute a little bit to her dizziness but it was very hard to provoke with the testing and with her range of motion of her neck. The patient was left in chair with chair alarm set and call light within reach. Nursing staff was notified. JANA
== END 2019-03-24 15:13 | disposition home or self-care (01) | DRG 690 ==
LOC: ER 14:03 → MED/SURG 16:18
PROVIDERS: ADMIT Internal Medicine; ATTEND Internal Medicine